=== PATIENT | female | born 1950 | race Caucasian/White ===

== ENCOUNTER 2019-07-10 06:10 | Day surgery (SDC) | payer MEDICARE, BC, SELFPAY ==
[2019-07-10 06:15] VITALS: BP 131/80; PULSE 92; RESP 18; TEMP 36.7; O2SAT 100
[2019-07-10] MEDS: Lactated Ringers 1,000 ML 80 ML IV (06:50)
[2019-07-10] MEDS: Bupivacaine 0.5% Pres-Free 30 ML VIAL (07:45)
[2019-07-10] MEDS: Lidocaine 1% Multi-Dose 50 ML VIAL (07:45)
[2019-07-10] MEDS: ceFAZolin 1 GM/50 ML BAG IVPB (07:45)
[2019-07-10] MEDS: Dexamethasone 4 MG/ML VIAL (08:45)
--- NOTE | 2019-07-10 09:04 | SOFT_PTH ---
PATIENT: Gardenia Davis LOC: [facility] U#:[id number] AGE/SX: 68/F ROOM: RE07/10/[address]: Timothy Meyer : 1950 BED: DIS: 07/10/2019 SPEC #: [id number] RECD: 07/10/19 12:17 STATUS: ERIK REQ #: [id number] SANJIV: 07/10/19 09:[address]: Timothy Meyer DEPT: Surgical Specimen RECD BY: Tracey Lipscomb ENTERED: 07/10/19 12:18 SP TYPE: SOFT OTHR DR: Burt Ang Tissues: 1 - SOFT TISSUE-CYST(NOT LIPOMA) Procedures: GROSS AND MICRO LEVEL 4 Comments: [id number]
--- NOTE | 2019-07-10 09:37 | W.PM.DSUDISC ---
Discharge Plan Disposition Patient Disposition: HOME Condition: Good Discharge Details Reason For Visit: Surgical repair left bunion and hammertoe deformit Attending Provider: Timothy Meyer Primary Care Provider: Burt Ang Home Meds and New Rx's Prescriptions: No Action multivitamin [Multiple Vitamins] Tablet 1 tab PO DAILY RF: 0 lisinopril-hydrochlorothiazide 10-12.5 mg Tablet 1 tab PO RF: 0 tamoxifen 20 mg Tablet 20 mg PO RF: 0 naproxen 375 mg Tablet 1,125 mg PO PRN PRNRF: 0 cetirizine [Zyrtec] 10 mg Tablet 5 mg PO DAILY RF: 0 calcium carbonate [Calcium 600] 600 mg calcium (1,500 mg) Tablet 600 mg PO DAILY RF: 0 Discharge Instructions Stand Alone Forms: Jerome Instructions-DSU, Corby Loyd (DSU) Activity:: Activity as Tolerated Remove Dressings/Wound Care:: Do Not Remove Shower/Bathe:: Cover Diet:: Normal Diet Discharge Orders Discharge Orders: Discharge Order (Routine); Ordered 07/10/19 Ordered By: Timothy Meyer DS: Diagnosis Discharge Diagnosis (1) Hallux valgus (acquired), left foot: Start date: 07/10/19 Start time: 09:37 Status: Acute Asessment and Plan: Status post modified Stafford bunionectomy, arthroplasty of the second and third toes with K wire fixation, flexor tenotomy of the fourth digit, excision soft tissue mass second intermetatarsal space likely ganglion
[2019-07-10 10:05] VITALS: BP 132/79; PULSE 75; RESP 16; TEMP 36.7; O2SAT 100
--- NOTE | 2019-07-10 11:51 | ROE_ITS ---
DATE OF PROCEDURE: July 10, 2019 PREOPERATIVE DIAGNOSIS: 1. Symptomatic left bunion deformity. 2. Symptomatic hammertoe deformities digits 2, 3 and 4, left foot. 3. Soft tissue mass second intermetatarsal space, left foot. POSTOPERATIVE DIAGNOSIS: Same PROCEDURE: 1. Modified Stafford bunionectomy. 2. Arthroplasty left second toe with .062 K-Wire fixation. 3. Arthroplasty left third toe with .035 K-Wire fixation. 4. Flexor tenotomy left fourth toe. 5. Excision soft tissue mass, probable ganglion, second intermetatarsal space, left foot. SURGEON: Timothy Meyer D.P.M. ANESTHESIA: IV general with local block of the left ankle utilizing 30 cc's of a 50:50 mixture 1% Li docaine plain, 0.5% Marcaine plain. ANESTHESIA PROVIDER: Mychal Avilez CRNA OPERATIVE INDICATIONS: 68-year-old female with progressive pain associated with bunion, hammertoe de formities and a ganglion of the left second intermetatarsal space. She understands risks and complic ations of surgery pertaining to pain, scarring, infection, stiffness of the joints, over-correction, under-correction, and recurrence of deformities potentially requiring revisional procedures. Informe d consent has been obtained. No promises made to the final outcome of surgery. REPORT OF OPERATION: The patient was brought to the operative suite, placed in a supine position whe re the left foot was prepped and draped in the usual sterile podiatric fashion. A time-out was obtai geovanna - all agreed on patient, risk factors, operative sites. The left foot was exsanguinated and a we ll-padded ankle tourniquet inflated to 250 mmHg. Attention was directed to the first MPJ where a 5 cm incision was made medial and parallel to the EHL tendon. The incision was deepened in controlled depth fashion, hemostasis acquired by electrocauter y. Dissection was carried down to the joint capsule. The joint capsule was incised dorsal medially and reflected. Large medial bump was appreciated. Moderate degenerative change of the articular alison face was noted on both sides of the joint, but no ljsmain-eqy-mokvsll erosions identified with the ex ception of the medial plantar region of the first metatarsal head. With power instrumentation the me dial and dorsal hyperostoses were resected. All rough and bony edges were rasped smooth. The hypero stosis at the base of the proximal phalanx was rongeured. The denuded area of cartilage along the pl ryann medial first metatarsal head was microfractured and drilled with a .035 K-Wire. A lateral rele ase was performed of the joint consisting of a lateral capsulotomy, adductor tendon release and fibul ar sesamoid mobilization. Nice relaxation of the great toe was appreciated and I decided that an ost eotomy was not required. The wound was copiously irrigated. The medial capsule was repaired with si mple interrupted suture #3-0 Vicryl. The subcutaneous layer was repaired with simple interrupted sut ure #4-0 Vicryl. A running subcuticular stitch with #4-0 Monocryl was then used to coapt the skin. Attention was now directed to the second and third toes. Two converging semi-elliptical incisions we re placed dorsally over the PIPJ of the second and third toes simultaneously. The skin wedges were e xcised. Soft tissue mobilization was performed. An extensor tendon tenotomy was performed over the PIPJ. The tendon was lifted, a #15 blade was inserted into the joint and the medial and lateral mary aterals released. The head of the proximal phalanx was delivered into the wound. The head was resec juliana at its surgical neck with all rough and bony edges being rasped smooth. Nice relaxation of the t oe was appreciated. The identical procedure was performed to the third toe. The second toe was fixa juliana with a .062 K-Wire in retrograde fashion. The third toe was fixated with a .045 K-Wire. The ext ensor tendons were shortened and repaired end-to-end with #3-0 Vicryl through simple interrupted sutu re and then the skin was coapted with simple interrupted suture #4-0 nylon, both toes being simultane ously worked on lyly-sh-bzjv. Attention was now directed to the fourth toe where utilizing an #18 gauge needle on a 3 cc barrel, a stab incision was placed plantarly midline. The tendon was released by moving the #18 needle side-to -side until relaxation was achieved. The fourth toe was now rectus. Attention was now directed into the left second intermetatarsal space. Dorsal incision was made star ting at the toe ball cleft and extending approximately 3.5 cm proximally. The skin was opened withou t difficulty. Immediately it was obvious there was a soft tissue mass within the intermetatarsal spa ce. Careful dissection ensured and a fluid-filled mass was identified, consistent with a ganglion. This was dissected distally, medially, laterally and proximally. As I got down towards the deep to t he deep transverse metatarsal ligament, the mass was ruptured and a clear jelly-like fluid noted. Th e mass was grabbed with pickups and further dissection occurred. It appeared to be coming from the m edial aspect of the third metatarsophalangeal joint region. This was carefully dissected and severed at its base. This mass was sent out to Pathology. Interesting additional finding is that within th e interspace and possibly within the mass itself was discoid-appearing fatty tissue, and quite a larg e amount of it. A portion of this was collected and sent to Pathology in addition to what appeared t o be a ganglionic mass. The wound was then copiously irrigated. I do suspect there was some neurolo gic structure contained within the soft tissue mass, removed during dissection. No further pathology was seen in the intermetatarsal space. The wound was closed in layers, closing the deep layer with #3-0 Vicryl, subcutaneous layer with #4-0 Vicryl, a running subcuticular stitch of #4-0 Monocryl. Th e bunion and second interspace incisions were painted with Mastisol and covered with half-inch Steri- Strips. 4 mg of dexamethasone phosphate was infused deeply into the wounds. Betadine ointment appli ed to the K-Wires. Xeroform applied to all wounds. Gauze fluff compression dressings applied. The tourniquet was released at approximately eighty-four minutes with vascularity returning immediately t o all toes. Gardenia left the OR with vital signs stable, vascular status intact. Sharp and sponge cou nts were correct. She will be followed by me in the office next week.
== END 2019-07-10 10:30 | disposition home or self-care (01) ==
PROVIDERS: PCP Family Medicine; Visit Provider Podiatrist
PROC: (CPT 28292; principal; 2019-07-10 07:30)
PROC: (CPT 28296; 2019-07-10 07:30)
DX: M20.12 Hallux valgus (acquired), left foot (principal); M21.612 Bunion of left foot; M20.42 Other hammer toe(s) (acquired), left foot; M71.372 Other bursal cyst, left ankle and foot
CPT/HCPCS: 28296; 28285; 28092; 28220; 88305; 88304; J0690; J1100; J2405

== ENCOUNTER 2024-12-28 15:29 | Outpatient (CLI) | payer MEDICARE, BC, SELFPAY ==
--- NOTE | 2024-12-28 10:30 | DI.RAD_ITS ---
Exam(s) XR STANDING ALIGNMENT XR KNEE RT 1V EXAM: XR STANDING ALIGNMENT CLINICAL HISTORY: RIGHT KNEE PAIN. TECHNIQUE: 2D digital imaging was performed. Standing AP views were performed from the pelvis throu gh the ankles. COMPARISON: CR XR KNEE COMPLETE MIN 4V RT from 02/14/2023 CR XR KNEE RT 1V from 12/28/2024 FINDINGS: BONES: No acute fracture is present. No bony destructive lesion is seen. Leg length discrepancy: No significant overall leg length discrepancy. JOINTS: Knees: There is severe narrowing of the medial femoral tibial joint space of the right knee, with a zeio-ll-mqlb appearance. Prominent periarticular spurring and varus angulation. There is mod erate to severe narrowing of the medial femoral tibial joint space of the left knee with mild periart icular spurring. The ankle joints show mild degenerative changes.. Hips: Hip joint spaces are maintained. Acetabular spurring on the left. SOFT TISSUE: Normal. IMPRESSION: Severe degenerative changes of the medial femoral tibial joint space of the left knee.. No significant leg length discrepancy. DATA REPOSITORY: RADIATION DOSE DELIVERED:
--- NOTE | 2024-12-28 10:33 | DI.RAD_ITS ---
Exam(s) XR STANDING ALIGNMENT XR KNEE RT 1V EXAM: XR STANDING ALIGNMENT CLINICAL HISTORY: RIGHT KNEE PAIN. TECHNIQUE: 2D digital imaging was performed. Standing AP views were performed from the pelvis throu gh the ankles. COMPARISON: CR XR KNEE COMPLETE MIN 4V RT from 02/14/2023 CR XR KNEE RT 1V from 12/28/2024 FINDINGS: BONES: No acute fracture is present. No bony destructive lesion is seen. Leg length discrepancy: No significant overall leg length discrepancy. JOINTS: Knees: There is severe narrowing of the medial femoral tibial joint space of the right knee, with a hbcf-hy-grnt appearance. Prominent periarticular spurring and varus angulation. There is mod erate to severe narrowing of the medial femoral tibial joint space of the left knee with mild periart icular spurring. The ankle joints show mild degenerative changes.. Hips: Hip joint spaces are maintained. Acetabular spurring on the left. SOFT TISSUE: Normal. IMPRESSION: Severe degenerative changes of the medial femoral tibial joint space of the left knee.. No significant leg length discrepancy. DATA REPOSITORY: RADIATION DOSE DELIVERED:
== END 2024-12-28 15:30 | disposition home or self-care (01) ==
LOC: DIORS 15:29
PROVIDERS: PCP Physician Assistant; Referring Provider Physician Assistant; Visit Provider Student in an Organized Health Care Education/Training Program
DX: M17.11 Unilateral primary osteoarthritis, right knee; I10 Essential (primary) hypertension; Z85.3 Personal history of malignant neoplasm of breast
CPT/HCPCS: 99203; 73560; 77073

== ENCOUNTER 2025-04-15 02:49 | Outpatient (CLI) | payer MEDICARE, BC, SELFPAY ==
[2025-04-15 14:48] LABS: HCT 38.4 % (36.0-46.0); HGB 12.8 g/dL (11.2-15.7); MCH 30.5 pg (27.0-33.0); MCHC 33.3 % (32.0-36.0); MCV 92 fL (80-95); MPV 10.7 fL (8.0-11.0); Platelet Count 279 10^3/uL (130-400); RBC 4.19 10^6/uL (3.93-5.22); RDW 14.4 % (11.7-14.6); RDW-SD 47.9 fL; WBC 9.01 10^3/uL (4.4-10.8)
[2025-04-15 15:19] LABS: Anion Gap 7.4 mmol/L (3-11); BUN 25 mg/dL (7-18); CO2 30.6 mmol/L (21.0-32.0); Calcium 10.7 mg/dL (8.5-10.1); Chloride 104 mmol/L (98-107); Estimated GFR 67.08 (mL/min/1.73m2); Glucose 92 mg/dL (74-106); Potassium 3.6 mmol/L (3.5-5.1); Sodium 142 mmol/L (136-145)
== END 2025-04-15 02:50 | disposition home or self-care (01) ==
LOC: LBO 02:49
PROVIDERS: PCP Physician Assistant; Visit Provider Student in an Organized Health Care Education/Training Program
DX: M17.11 Unilateral primary osteoarthritis, right knee (principal); Z01.818 Encounter for other preprocedural examination
CPT/HCPCS: 36415; 80048; 85027

== ENCOUNTER 2025-04-27 07:13 | Day surgery (SDC) | payer MEDICARE, BC, SELFPAY ==
[2025-04-27] VITALS (16 sets, daily range): BP systolic 92–199; BP diastolic 38–75; PULSE 85–92; RESP 14–20; TEMP 36.2–37.1; O2SAT 95–100; BMI 23.2
--- NOTE | 2025-04-27 07:07 | PDOC.DSDIS_ITS ---
Date of service: 04/27/25 Discharge Plan Disposition Patient Disposition: Home Condition: Good Discharge Details Reason For Visit: Right knee DJD Attending Provider: Ruel Sanchez Primary Care Provider: Kaden Mims Home Meds and New Rx's Prescriptions: New celecoxib [Celebrex] 200 mg capsule 200 mg PO BID PRNQty: 60 0RF Rx Instructions: Take one tablet twice daily for pain and inflammation aspirin 81 mg tablet,delayed release (DR/EC) 81 mg PO BID 30 Days Qty: 60 0RF acetaminophen 500 mg tablet 1,000 mg PO Q8H PRN Qty: 90 0RF Rx Instructions: Take two tablets up to every 8 hours as needed for pain pantoprazole 40 mg tablet,delayed release (DR/EC) 40 mg PO DAILY Qty: 14 0RF dexamethasone 4 mg tablet 4 mg PO DAILY Qty: 2 0RF Rx Instructions: Take one tablet once daily for two days docusate sodium [Colace] 100 mg capsule 100 mg PO BID Qty: 28 0RF gabapentin 300 mg capsule 300 mg PO QHS Qty: 14 0RF Rx Instructions: Take one tablet at bedtime oxycodone 5 mg tablet 5 mg PO Q4H PRNQty: 18 0RF Rx Instructions: Take one tablet up to every 4 hours as needed for severe postoperative pain Continued calcium citrate-vitamin D3 [Citracal + D Maximum] 315 mg-6.25 mcg (250 unit) tablet 1 tab PO DAILY cyclosporine 0.05 % drops 1 drp ophthalmic (eye) Q12H folic acid 1 mg tablet 1 mg PO DAILY lisinopril-hydrochlorothiazide 20-25 mg tablet 1 tab PO DAILY methotrexate sodium 2.5 mg tablet 15 mg PO QWEEK multivitamin [Multiple Vitamins] Tablet 1 tab PO DAILY cetirizine [Zyrtec] 10 mg Tablet 10 mg PO DAILY Discontinued naproxen 375 mg Tablet 1,125 mg PO PRN PRN Discharge Instructions Additional Instructions: Total Knee Discharge Instructions Activity: The most important activity is to walk and to work on gentle motion (both flexion and extension). You should try to take short walks a few times a day. It is important that when resting you work on keeping the knee straight. Avoid putting a pillow behind the knee as this will encourage flexion. Work on range of motion exercises as provided by Physical Therapy. - Start outpatient physical therapy within 2 weeks. - You should wear the GERMÁN hose on both legs for 2 weeks. You may remove these at night. You may also use any compression sock in place of the GERMÁN hose. - Utilize [employer] to review exercises, see videos on exercises and obtain basic information pertaining to your surgery and your recovery. Dressing: Remove the Ramin wrap by 2 days after your surgery and put on the GERMÁN stocking given to you from the hospital. Keep the surgical dressing (underneath the RAMIN wrap) in place for at least one week. After the first week it may be removed and replaced with light gauze and tape or nothing. The wound and dressing may get wet after 3 days but avoid soaking the dressing or otherwise it will need to be changed. Many people prefer covering the dressing with cling wrap (saran wrap) to minimize it from getting soaked. If it gets wet, just pat dry. If it starts to peel off then it will need to be changed. Medications: - You should take Tylenol and anti-inflammatory Celebrex as your primary pain control medications. If the Celebrex is too expensive or not covered, please call the office for another alternative (Advil/Ibuprofen or Naproxen/Aleve) - You have been prescribed a stronger pain medication Oxycodone for breakthrough pain, take as needed as prescribed. - You have also been prescribed a stomach acid reduction agent Pantoprozole to help reduce stomach acid and reflux. - You have been prescribed Gabapentin to take at night for restlessness and nerve pain. - You will be taking Aspirin 81mg twice a day for DVT prevention unless instructed otherwise. - You have also been prescribed Decadron to take to control post-operative nausea and pain. You will start this tomorrow. - If you have constipation you should take Colace (which has been prescribed) or Miralax (which is available rxga-zni-hvleoth). It takes most people 3-4 days to have a bowel movement. Follow-up: 2 weeks If you have any acute concerns or questions, please do not hesitate to contact the office at [phone]. You may contact Dr. Sanchez with any questions after hours through the hospital at [phone] or on his cell phone at [phone]. Referrals: Ruel Sanchez MD [ [facility] STAFF PHYSICIAN, Orthopaedic Surgical] Equipment/Supplies: Walker Activity:: Elevate Remove Dressings/Wound Care:: Do Not Remove Shower/Bathe:: Cover Diet:: As Tolerated Discharge Orders Discharge Orders: Discharge Order (Routine); Ordered 04/27/25 Ordered By: Blanca Metzger
[2025-04-27] MEDS: Acetaminophen 500 MG TAB 1000 MG PO (07:57)
[2025-04-27] MEDS: Celecoxib 200 MG CAP 400 MG PO (07:57)
[2025-04-27] MEDS: Gabapentin 300 MG CAP PO (07:57)
--- NOTE | 2025-04-27 08:12 | W.ANESPRE ---
General Info Date of Service Date Performed: 04/27/25 Height: 5 ft 5 in Weight: 63.3 kg Body Mass Index (BMI): 23.2 Surgical Procedure: Operation Date: 04/27/25 09:25 Proposed Procedure Side Surgeon p Knee Total Arthroplasty Right Ruel Sanchez MD Actual Procedure Side Surgeon p Knee Total Arthroplasty Right Ruel Sanchez MD Pre-Op Diagnosis Post-Op Diagnosis Degenerative joint disease of right knee Meds Allergies and Home Medications Allergies Allergy/AdvReac Type Severity Reaction Status Date / Time grass pollen Allergy Unknown Unknown Verified 04/27/25 07:37 sulfamethoxazole (From AdvReac Intermediate Diarrhea Verified 04/27/25 07:37 Bactrim) trimethoprim (From Bactrim) AdvReac Intermediate Diarrhea Verified 04/27/25 07:37 Home Medication ?Medication ?Instructions ?Recorded multivitamin (Multiple Vitamins 1 tab PO DAILY 07/06/19 tablet) cetirizine 10 mg tablet (Zyrtec) 10 mg PO DAILY 07/08/19 calcium 315 mg (as 1 tab PO DAILY 10/30/24 citrate)-vitamin D3 6.25 mcg (250 unit) tablet (Citracal + Vitamin D Maximum) cyclosporine 0.05 % eye drops 1 drp ophthalmic (eye) Q12H 10/30/24 folic acid 1 mg tablet 1 mg PO DAILY 10/30/24 lisinopril 20 1 tab PO DAILY 10/30/24 mg-hydrochlorothiazide 25 mg tablet methotrexate sodium 2.5 mg tablet 15 mg PO QWEEK 10/30/24 acetaminophen 500 mg tablet 1,000 mg (2 x 500 mg) PO Q8H PRN 04/27/25 pain #90 tabs aspirin 81 mg tablet,delayed 81 mg PO BID 30 days #60 tabs 04/27/25 release celecoxib 200 mg capsule (Celebrex) 200 mg PO BID PRN #60 caps 04/27/25 dexamethasone 4 mg tablet 4 mg PO DAILY #2 tabs 04/27/25 docusate sodium 100 mg capsule 100 mg PO BID #28 caps 04/27/25 (Colace) gabapentin 300 mg capsule 300 mg PO QHS #14 caps 04/27/25 oxycodone 5 mg tablet 5 mg PO Q4H PRN #18 tabs 04/27/25 pantoprazole 40 mg tablet,delayed 40 mg PO DAILY #14 tabs 04/27/25 release Current Visit Medications: Current Medications Generic Name Dose Route Start Last Admin Trade Name Freq PRN Reason Stop Dose Admin Acetaminophen 1,000 mg 04/27/25 06:00 04/27/25 07:57 Acetaminophen 500 Mg Tab PO 04/27/25 23:59 1,000 mg PREOP ISABELLA Administration Celecoxib 400 mg 04/27/25 06:00 04/27/25 07:57 Celecoxib 200 Mg Cap PO 04/27/25 23:59 400 mg PREOP ISABELLA Administration Gabapentin 300 mg 04/27/25 06:00 04/27/25 07:57 Gabapentin 300 Mg Cap PO 04/27/25 23:59 300 mg PREOP ISABELLA Administration Hydromorphone HCl 0.5 mg 04/27/25 07:06 Hydromorphone 2 Mg/Ml Syr IVP 05/27/25 07:05 Q2H PRN PRN Ringer's Solution 1,000 mls @ 80 mls/hr 04/27/25 06:00 IV 04/27/25 23:59 INFUSION ISABELLA Cefazolin Sodium/Dextrose 2 gm in 50 mls @ 100 mls/hr 04/27/25 06:00 Ancef Duplex IVPB 04/27/25 23:59 PREOP ISABELLA Tranexamic Acid/Sodium Chloride 1,000 mg in 100 mls @ 600 mls/hr 04/27/25 06:00 IVPB 04/27/25 23:59 PREOP ISABELLA Cefazolin Sodium/Dextrose 1 gm in 50 mls @ 100 mls/hr 04/27/25 18:00 Ancef Duplex IVPB 04/28/25 10:29 Q8H ISABELLA IV Miscellaneous Supplies 1 each 04/27/25 06:00 Iv Access IV 04/27/25 23:59 DIRECTED ISABELLA Oxycodone HCl 0 mg 04/27/25 07:06 Oxycodone 5 Mg Tab PO 05/27/25 07:05 Q3H PRN PRN Pain Sodium Chloride 0 ml 04/27/25 06:00 Normal Saline Flush 10 Ml Syr IV 04/27/25 23:59 PRN PRN Sodium Chloride 0 ml 04/27/25 06:00 Normal Saline 10 Ml Vial IJ 04/27/25 23:59 DIRECTED PRN Sterile Water 0 ml 04/27/25 06:00 Water,Injection,Sterile 10 Ml Vial IJ 04/27/25 23:59 DIRECTED PRN Tranexamic Acid 1,300 mg 04/27/25 07:06 Tranexamic Acid 650 Mg Tab PO 04/27/25 23:59 DIRECTED [facility] PFSH Active Problems Active Problems: Problem Status Onset Code History of total right knee replacement Acute 04/27/25 Z96.651 Hallux valgus (acquired), left foot Acute M20.12 Medical History Medical History (Updated 04/27/25 @ 08:02 by Barrera Flores, RN) History of postoperative nausea and vomiting Hysterectomy Breast CA Treated with excision and radiation >10 years cancer free L breast Psoriasis Inflammatory dermatosis Polymyalgia rheumatica Allergic rhinitis Hyperlipemia Hypertension Seronegative rheumatoid arthritis Non-toxic goiter Surgical History Surgical History (Updated 04/27/25 @ 08:02 by Barrera Flores RN) History of cataract surgery bilat History of lumpectomy L breast w/lymph nodes Status post tendon repair rt hand History of hysterectomy History of tubal ligation Tobacco Smoking/Tobacco Use Status: Never Alcohol Alcohol Intake: former Substance Use Substance use: Never Substance use type: does not use Details: Pt states uses CBD lotion Vital Signs and Lab Results Vital Signs Most Recent Vital Signs in EMR: Most Recent Vital Signs Temp Pulse Resp BP Pulse Ox 36.2 C L 90 16 199/75 H 100 04/27/25 07:19 04/27/25 07:19 04/27/25 07:19 04/27/25 07:19 04/27/25 07:19 Lab Results Complete Blood Count: WBC, (4.4-10.8) 9.01 10^3/uL 04/15/25, 14:37 RBC, (3.93-5.22) 4.19 10^6/uL 04/15/25, 14:37 Hgb, (11.2-15.7) 12.8 g/dL 04/15/25, 14:37 Hct, (36.0-46.0) 38.4 % 04/15/25, 14:37 Plt Count, (130-400) 279 10^3/uL 04/15/25, 14:37 Complete Metabolic Panel: Sodium, (136-145) 142 mmol/L 04/15/25, 14:37 Potassium, (3.5-5.1) 3.6 mmol/L 04/15/25, 14:37 Chloride, (98-107) 104 mmol/L 04/15/25, 14:37 Carbon Dioxide, (21.0-32.0) 30.6 mmol/L 04/15/25, 14:37 BUN, (7-18) 25 mg/dL H 04/15/25, 14:37 Creatinine, (0.55-1.02) 0.9 mg/dL 04/15/25, 14:37 Est GFR (CKD-EPI 2020), (mL/min/1.73m2) 67.08 04/15/25, 14:37 Calcium, (8.5-10.1) 10.7 mg/dL H 04/15/25, 14:37 Glucose, (74-106) 92 mg/dL 04/15/25, 14:37 Anesthesia Assessment and Plan Anesthesia History Personal History: Other Family History: No Family History of Anesthesia Complications Exercise Tolerance Exercise Tolerance: Metabolic Equivalents>4 Pertinent Negatives Pertinent Negatives: No Symptoms of GERD, No Major Cardiovascular Symptoms or Complaints, No Major Pulmonary Symptoms or Complaints and No History of CVA/TIA Cardiac & Pulmonary Exam Cardiac Exam: Normal S1/S2 Heart Sounds Pulmonary Exam: Clear Bilateral Breath Sounds Implantable Cardiac Device Does patient have a Pacemaker or an ICD?: No Airway Exam Known Difficult Airway: No Mallampati Class: 2 Mouth Opening: Normal (> 3cm) Thyromental Distance: Greater than 3 cm Neck Range of Motion: Full ROM Neck Circumference: Normal Teeth Condition: Normal Dentition Airway Comments: Neck examined and goiter not significantly obvious. Prominent maya ASA Classification ASA Score: ASA 2 Emergency Case?: No NPO Status NPO Status: NPO Clears >2 hours, Solids >8 hours Anesthesia Plan Resuscitation Status: Full Code Anesthesia Technique: Spinal Anesthesia Airway Planned: Natural Airway Pain Management: Surgeon and patient request nerve block Monitors Used: Standard Monitors
[2025-04-27] MEDS: Lactated Ringers 1,000 ML 80 ML IV (08:17)
--- NOTE | 2025-04-27 08:49 | ANES.NERVE_ITS ---
Nerve Block Single Injection Procedure Date and Time Date Performed: 04/27/25 Procedure Start: 08:38 Location Where Procedure Performed Procedure Location: Day Surgery Unit Reason Performed: Postoperative Analgesia Requesting Provider: Ruel Sanchez Timeout Performed Timeout Performed: Yes Monitoring Used ECG, Blood Pressure and SpO2 Sterility Sterility: Hand Hygiene, Surgical Cap, Surgical Mask, Sterile Gloves and Chlorhexidine Sedation Given During Procedure Sedation Given (Indicate Dose Given): Precedex IV Dose:: 12 mcg Patient Mental Status Patient Mental Status: Sedate with meaningful communication Nerve Block 1st Nerve Block: Laterality: Right Block Type: Adductor Canal Ultrasound Image Saved?: Yes Needle / Catheter Used: 100mm SonoPlex II Local Anesthetic Bolus (Indicate Dose Given): Lidocaine used for local infiltration of skin (chloroprocaine), Injected in 3-5ml increments after negative blood aspiration, Bupivacaine 0.25% Dose:: 10 ml and Exparel Dose:: 10 ml Additives (Indicate Dose Given): None Ultrasound: Sterile probe cover and gel used Nerve Stimulator: Supplement to Ultrasound use and No twitch or parasthesia noted < 0.5 mA Paresthesia: None Procedure Tolerated: No Complications and Patient tolerated well Procedure Outcome: Successful Performed By: Binu Wade 2nd Nerve Block: Laterality: Right Block Type: Other (Anterior femoral cutaneous nerves) Ultrasound Image S aved?: Yes Needle / Catheter Used: 100mm SonoPlex II Local Anesthetic Bolus (Indicate Dose Given): Lidocaine used for local infiltration of skin (chloroprocaine), Injected in 3-5ml increments after negative blood aspiration and Bupivacaine 0.25% Dose:: 6 ml Additives (Indicate Dose Given): None Ultrasound: Sterile probe cover and gel used Nerve Stimulator: Supplement to Ultrasound use and No twitch or parasthesia noted < 0.5 mA Paresthesia: None Procedure Tolerated: No Complications and Patient tolerated well Procedure Outcome: Successful Performed By: Binu Wade
[2025-04-27] MEDS: ceFAZolin 2 GM/50 ML BAG IVPB (08:57)
[2025-04-27] MEDS: TRANEXAMIC ACID/SOD. CHL. 1,000 MG/100 ML BAG 600 MG IVPB (09:15)
--- NOTE | 2025-04-27 10:45 | W.ANESPOSTOP ---
Postoperative Evaluation Date, Time and Location Date Performed: 04/27/25 Time Performed: 10:45 Patient Location: Day Surgery Unit Vital Signs Most Recent Imported Vital Signs: Most Recent Vital Signs Temp Pulse Resp BP Pulse Ox 36.8 C 88 16 157/68 H 97 04/27/25 08:16 04/27/25 08:16 04/27/25 08:16 04/27/25 08:16 04/27/25 08:16 Pain Score Most Recent Pain Score: Most Recent Pain Score Pain Level 0 04/27/25 08:16 Assessment Mental Status: Awake (Alert & Oriented to Patient Baseline) Airway and Respiratory Function: Patent airway with normal (patient baseline) respiratory exam Cardiovascular Function: Hemodynamically Stable Hydration Status: Adequately Hydrated Nausea & Vomiting: No Nausea or Vomiting Pain: Pt. Denies Any Pain Peripheral Nerve Block: Regional nerve block not resolved at time of post operative discharge Postoperative Comments:: Patient's spinal is wearing off appropriately
--- NOTE | 2025-04-27 11:07 | W.PM.OP ---
Operative Note Operative Note PRE-OP DIAGNOSIS: Right Knee Osteoarthritis POST-OP DIAGNOSIS: same PROCEDURE: Right Total Knee Replacement SURGEON: Ruel Sanchez GRAPHIC ARTS INSTRUCTOR: Blanca Metzger ANESTHESIA TYPE: Spinal Refer to Anesthesia Record ESTIMATED BLOOD LOSS: 100 PATHOLOGY: none sent TOURNIQUET TIME: 0 COMPLICATIONS: None Patient was transported to: PACU Patient's condition: stable Implants: 1. Depuy Attune Cementless Cruciate Retaining Femoral Component, Size 5 Narrow 2. Depuy Attune Cementless Fixed Bearing Tibial Component, Size 4 3. Depuy Attune 5x6mm CR/FB Poly Indications: I have seen Gardenia in clinic for symptoms of knee arthritis, confirmed with radiographic findings. Gardenia has exhausted nonoperative methods and was having significant limitations in daily function and desired better function and less pain. I discussed the technical details of a knee replacement. I explained the risks of the procedure to include, but not limited to, bleeding, infection, pain, stiffness, fracture, damage to nerves and vessels, damage to muscles and tendons, loosening, need for repeat procedure, blood clot and cardiopulmonary demise. Despite these risks, Gardenia elected to proceed. Findings: There was significant signs of arthritis throughout the knee. Procedure Description: Gardenia was greeted in the preoperative holding area where the correct side was identified and marked. The consent was reviewed with the patient and signed. The history and physical was updated. All questions were answered. Preoperative medications were administered: Acetaminophen 1000mg, Celebrex 400mg, and Gabapentin 300mg. An adductor canal block was then administered by the anesthesia team in the DSU. Gardenia was taken back to the operating room. A spinal anesthestic was then administered. The patient was placed into the supine position on the operating room table. Posts were placed for positioning during the procedure. All bony prominences were well padded. Prophylactic antibiotics in the form of Cefazolin were administered. 1g of Tranxemic Acid was given intravenously within 30 minutes of incision. The right leg was then prepped with Chloraprep and draped in a standard fashion with impervious stockinette. A second prep with Chloraprep was performed prior to application of Iodine impregnated skin protection. A timeout to confirm correct identity, side and site, procedure, allergies, anesthesia, and medical concerns was performed. With the knee in some flexion, a midline incision was made overlying the knee. Full thickness skin flaps were raised once the extensor mechanism was encountered. These were raised medially and laterally. Any bleeding was controlled with electrocautery. Once the extensor mechanism was fully exposed, a medial parapatellar arthrotomy was performed in a flexed position. All bleeding from the arthrotomy and the geniculate arteries was coagulated. A medial subperiosteal peel was performed with electrocautery to the midcoronal plane. The fat pad was removed while keeping the patellar tendon protected. The anterior distal femur synovium was removed for later visualization. The ACL and PCL were resected and the anterior horn of the lateral meniscus was transected. The knee was then flexed with the patella everted. Large osteophytes from the tibia were removed. Large osteophytes from the femur were removed. Using a step drill, and based on preoperative templating, the femoral canal was entered. This was done with a step drill without any difficulty. The intramedullary distal femoral cut guide was inserted, set to a 5 degree valgus cut and 9mm cut thickness. The distal femoral cut guide was then held in position and pinned. With the soft tissues protected, the distal cut was performed. This was passed over a few times to ensure a planar cut. I then turned attention to the tibia. The extramedullary guide was placed onto the leg. The distal aspect was slid medial to adjust for position of center of ankle and stay in line with shaft of the tibia. Approximately 3-5 degrees of posterior slope was kept in the proximal cutting guide. The center of the guide was aligned with the PCL. The stylus was used to assess cut thickness. The medial side, most involved side, was set for a 4mm cut. This was then held in position and pinned into place with 2 additional pins and a cross pin for stability. The medial and lateral collateral ligaments were protected and the cut was performed. With this completed, it was assessed and noted to be of appropriate dimensions. The guide was removed. A spacer block was inserted and the knee was brought into extension. The 6mm spacer block provided full extension, without hyperextension and with stability of both the medial and lateral collateral ligaments was assessed. The pins from the femur and the tibia were then removed. The distal femur was then sized. The anterior stylus was placed onto the lateral ridge of the anterior femur. This indicated a size 5 Narrow femur. The external rotation of the guide was adjusted to 3 degrees to match the epicondylar axis, perpendicular to [place]?s line. The 4-in-1 cutting guide was the placed. The posterior medial femur cut was evaluated and appeared of good thickness. The spacer block was inserted underneath the cutting guide and stability was confirmed in 90 degrees of flexion. An arturo wing was used to confirm appropriate position of the anterior cut to avoid notching. This cutting guide was ensured to be flush on the cut surface and then pinned into place with headed pins. While protecting the soft tissues, quad tendon, and collateral ligaments, the anterior and posterior cuts were performed with a saw. The central two pins were removed and the posterior and anterior chamfers were cut next. The notch-cutting guide was placed. This was pinned to lateralize the femoral component as much as possible while keeping it flush on the cut surface. This was then pinned into position. A reciprocating saw was used to make the notch cut. A rasp smoothed the cut surfaces. The medial and lateral menisci were removed. A trial femoral component was then inserted, impacted down to the cut surfaces, and the lug holes were drilled. A provisional trial tibial component was placed and the knee was brought through range of motion. There was noted to be excellent extension and flexion. There was no significant instability. The patella was tracking without thumbs. A size 6mm polyethylene component provided the best range of motion and stability with less than 2mm gapping with medial and lateral stress and full extension without significant hyperextension. The tibial cut surface was fully exposed. There was noted to be some slight deficiency over the posterior medial corner where a portion of the posterior cord broke off with osteophyte in the back. Dissection of bone was removed. Then, the tibia was then sized as a 4. The tibia had been previously marked during trialing to correspond to the center of the tibial component to help with rotation. The trial was aligned to this alannah, approximately rotated to the medial 1/3rd of the tibial tubercle. The trial was pinned into place. The tibia was prepared with a reamer and a keel punch and lug holes. The trial components were removed. The final components were opened on the back table. The periosteal and capsular tissues, especially posteriorly, around the knee were then systematically injected with a periarticular cocktail consisting of 246mg of Ropivacaine, 0.5mg of Epinephrine, 0.08mg of Clonidine, and 30mg of Ketorolac, diluted to 100cc. On the back table, with the implants opened. The cementless knee components were placed. Starting with the tibial component, the tibia was subluxed anteriorly and the lug holes of the component were lined up. The tibia was then impacted with an impactor and mallet until the tibial component was in contact with the tibia. The final polyethylene component was inserted. Then, the femoral component was inserted. The lug holes were aligned and the component was impacted into position. The knee was irrigated with Surgiphor Betadine solution. This was allowed to sit in the knee for 3 minutes and then it was irrigated out with saline. The patella was tracking with a no-thumbs technique. The capsule was then reapproximated with a No. 1 Vicryl at multiple locations. The capsule was finally closed with a No. 2 Stratafix, barbed suture. Deep tissues were then reapproximated with 0 Vicryl and 2-0 Vicryl. The skin was closed with a running 3-0 Monocryl in a subcuticular fashion. This was reinforced with skin glue. A Mepilex silver dressing was applied along with a [id number] RAFAEL wrap. A CryoCuff was applied. NAME was transferred to the hospital bed without difficulty an suffering no apparent complication. Gardenia has a good prognosis. Physical therapy will start today and without restrictions, weight-bearing as tolerated. Aspirin 81mg BID will be used for DVT prophylaxis. Date of Procedure: 04/27/25
--- NOTE | 2025-04-27 12:58 | PT.INIE ---
PT Notes Visit Reasons: Right knee DJD Physical Therapy Day Surgery Initial Evaluation Date:04/27/2025 Referring Doctor: Blanca Metzger, LEAD CUSTODIAN/ Dr Sanchez PT Orders: PT CONSULT: s/p Ortho Surgery Precautions: WBAT RLE; TEDS x 2 weeks Patient Profile/Admitting Diagnosis: Gardenia is a 74 yo female presenting s/p elective right TKA under spinal anesthesia by Dr Sanchez on 04/27/2025. Post op uncomplicated PMHX: Degenerative joint disease of right knee (Chronic) Hallux valgus (acquired), left foot (Acute) Medical History (Updated 12/28/24 @ 10:35 by Blanca Metzger) History of postoperative nausea and vomiting HysterectomyBreast CA Treated with excision and radiation >10 years cancer freePsoriasis Inflammatory dermatosis Polymyalgia rheumatica Allergic rhinitis Hyperlipemia Hypertension Seronegative rheumatoid arthritis Non-toxic goiter Surgical History History of cataract surgery bilatHistory of lumpectomy L breast w/lymph nodesStatus post tendon repair rt handHistory of hysterectomy History of tubal ligation Social History/Home Situation: Pt resides in [facility] with her and 2 dogs; she has 2 CHAVO with right rail ascending. Pt is independent with ADL, amb, drives (manual), shops, and meal prep. is available to assist as needed Equipment Owned/DME: [facility] Subjective: Pt reports the back of her right knee is very sore. Objective: [] General Observation: pt presents semireclined on stretcherwith cryocuff to her right knee and present in the room. Mental Status: A+Ox4, cooperative, motivated, able to follow and carryover instructions, Pt agreeable to participate in assessment Pain: right knee posteriorly 3/10 ROM: [] BUE WNL Right Lower Extremity: Hip and ankle WNL, Knee 0-100 degrees Left Lower Extremity: WNL Strength: BUE: 5/5 Right Lower Extremity: Hip flexion: 3- /5; hip abduction: 3- /5; hip extension: 3-/5; knee extension: 3/5; knee flexion: 2+/5 ankle DF: 3+ /5 ; ankle PF: 3+ /5, strong quad set; SLR without lag in shortened ROM Left Lower Extremity: 5/5 Sensation: intact Bed Mobility/Transfers: [] Supine to sit SBA Sit to stand SBA with initial cue for hand placement Stand to sit SBA Bed to chair SBA with FWW Gait: amb 150 feet with FWW SBA initially with step to pattern ad small steps. Pt able to progress to reciprocal pattern and slightly longer step length. Pt demonstrates reduced knee flexion right swing phase. stairs: 5 steps with 1 rail with CGA and verbal cues for sequencing. Balance: [] Static Sitting: Normal Dynamic Sitting: Good Static Standing: Good Dynamic Standing: Fiar+ Special Tests: [] Mobility Limitations Standardized Measure [] [facility] AM-PAC 6 clicks Basic Mobility Inpatient Short Form: [] Raw Score: 23 CMS Score: 11.20% Informed Consent/Education: Patient instructed in purpose of PT consult. Treatment 36225: Packet containing TKA exercise protocol has been given to patient. Education and training on initial set of 10 reps of exercises that can be done at home have been completed with patient. Pt's demonstrates ability to provide appropriate verbal cues and physical assistance on the stairs after initially instruction. Assessment: Patient is a 74 yo female who presents with clinical signs and symptoms consistent with current/admitting diagnoses that have resulted to mobility limitations, gait instability, generalized weakness, and impairment of motor control as demonstrated by the following impairment level findings: 1. Decreased strength to right knee major muscle groups 2. Impaired standing balance 3. Limitation of joint range of motion in right knee 4. Impaired functional activity tolerance 5. pain right knee Impairments are contributing to the following functional limitations: 1. Inability to safely ambulate without assistive device 2. Increase completion time for mobility ADL performance 3. Increased fall risk 4. difficulty performing stairs without assistance Patient is assessed as a moderate complexity based on the following: History: 74-year-old female with impairment level findings, functional limitations, and past medical history as indicated above Examination: Demonstrable impairment in strength, balance, and mobility level with underlying impairments and functional limitations as documented above Presentation: evolving Decision Making: moderate Goals: N/A. PT evaluation and 1-2 treatment sessions only for functional mobility training using recommended AD and for HEP instruction. Plan of Care/Treatment Plan: N/A. PT evaluation and 1-2 treatment session only for functional mobility training using recommended AD and for HEP instruction. DISCHARGE RECOMMENDATIONS:Home with HEP and outpatient PT as scheduled TREATMENT CODE/TIME: 75609, [id number]/ [id number] Thank you for the opportunity to participate in the care of this patient. Anum Narayanan PT [facility]
[2025-04-27] MEDS: Tranexamic Acid 650 MG TAB 1300 MG PO (13:05)
== END 2025-04-27 13:14 | disposition home or self-care (01) ==
LOC: SUR 07:15
PROVIDERS: PCP Physician Assistant; Visit Provider Student in an Organized Health Care Education/Training Program
PROC: (CPT 27447; principal; 2025-04-27 09:15)
DX: M17.11 Unilateral primary osteoarthritis, right knee (principal); G89.18 Other acute postprocedural pain
CPT/HCPCS: 27447; 64447; 64450; 97110; 97162; C1776; J0665; J0666; J0690; J1100; J2371; J2401; J2405; J2704

== ENCOUNTER 2025-05-10 11:14 | Outpatient (CLI) | payer MEDICARE, BC, SELFPAY ==
--- NOTE | 2025-05-10 09:45 | DI.RAD_ITS ---
Exam(s) XR STANDING ALIGNMENT EXAM: XR STANDING ALIGNMENT CLINICAL HISTORY: 1ST POST OP S/P R TKA. TECHNIQUE: 2D digital imaging was performed. COMPARISON: CR XR STANDING ALIGNMENT from 12/28/2024 FINDINGS: 3 views There has been interval placement of a right knee prosthesis which appears satisfactory. There is advanced narrowing of the medial compartment of the opposite-left knee noted. Lateral compartment left knee appears unremarkable. Both hips appear unremarkable as do the femurs and tibia and fibula. Slight asymmetry in the appearance of the ankle is noted. There is tilting of the right talar dome. IMPRESSION: As above. DATA REPOSITORY: RADIATION DOSE DELIVERED:
--- NOTE | 2025-05-10 09:45 | DI.RAD_ITS ---
Exam(s) XR KNEE RT 1V EXAM: XR KNEE RT 1V CLINICAL HISTORY: 1ST POST OP S/P R TKA. TECHNIQUE: 2D digital imaging was performed. COMPARISON: CR XR KNEE RT 1V from 12/28/2024 FINDINGS: Single lateral view of the right knee Sinus tract position alignment the components of the prosthesis. No fracture or loosening evident. IMPRESSION: Satisfactory appearance DATA REPOSITORY: RADIATION DOSE DELIVERED:
== END 2025-05-10 11:15 | disposition home or self-care (01) ==
LOC: DIORS 11:14
PROVIDERS: PCP Physician Assistant; Visit Provider Physician Assistant
DX: Z47.1 Aftercare following joint replacement surgery (principal); Z96.651 Presence of right artificial knee joint; M25.561 Pain in right knee
CPT/HCPCS: 99024; 73560; 77073

== ENCOUNTER → 2025-06-07 13:25 | Outpatient (BNVA) | payer MEDICARE, BC, SELFPAY | PROVIDERS: PCP Physician Assistant; Referring Provider Family Medicine; Visit Provider Physician Assistant | DX: Z47.1 Aftercare following joint replacement surgery (principal); Z96.651 Presence of right artificial knee joint | CPT/HCPCS: 99024 ==

== ENCOUNTER → 2025-07-12 13:06 | Outpatient (BNVA) | payer MEDICARE, BC, SELFPAY | PROVIDERS: PCP Physician Assistant; Referring Provider Family Medicine; Visit Provider Physician Assistant | DX: Z47.1 Aftercare following joint replacement surgery (principal); Z96.651 Presence of right artificial knee joint | CPT/HCPCS: 99212 ==